=== PATIENT | female | born 1965 | race Caucasian/White ===

== ENCOUNTER 2020-08-06 12:23 | Outpatient (CLI) | payer BC | END 2020-08-06 12:24 | disposition home or self-care (01) | LOC: CSHULT 12:23 | PROVIDERS: ATTEND Internal Medicine Hematology & Oncology | DX: D37.6 Neoplasm of uncertain behavior of liver, gallbladder and bile ducts (principal); R93.2 Abnormal findings on diagnostic imaging of liver and biliary tract; K80.80 Other cholelithiasis without obstruction | CPT/HCPCS: 93975 ==

== ENCOUNTER 2023-03-29 13:50 | Emergency (ER) | payer MEDICARE ==
[2023-03-29 15:40] LABS: Hematocrit 37.8 % (34.9-44.5); Hemoglobin 12.7 g/dL (12.0-15.5); Mean Corpuscular HGB CONC 33.6 g/dL (32.0-36.0); Mean Corpuscular Hemoglobin 32.5 pg (27.0-33.0); Mean Corpuscular Volume 96.7 fl (81.6-98.3); RBC Distribution Width 13.2 % (11.5-14.5); Red Blood Cell (RBC) Count 3.91 10x6/uL (3.90-5.03); White Blood Cell (WBC) Count 5.3 10x3/uL (3.5-10.5)
[2023-03-29 15:41] LABS: #Eosinphils 0.2 10x3/uL (0.0-0.5); #Monocytes 0.5 10x3/uL (0.0-1.1); #Neutrophils 3.8 10x3/uL (1.5-8.4); %Basophils 0.6 % (0.0-2.0); %Eosinophils 2.8 % (0.0-6.0); %Lymphocytes 16.5 % (18.0-47.0); %Monocytes 9.6 % (0.0-10.0); %Neutrophils 70.1 % (40.0-75.0)
[2023-03-29 15:49] LABS: ALT (SGPT) 40 U/L (8-55); AST (SGOT) 47 U/L (5-34); Albumin 3.5 g/dL (3.5-5.0); Alkaline Phosphatase 174 U/L (40-110); Anion Gap 16 mmol/L (10-20); BUN (Urea Nitrogen) 17 mg/dL (9.8-20.1); Bilirubin, Total 1.1 mg/dL (0.2-1.2); Calc. Creatinine Clearance 0 mL/min (70-130); Calcium 9.2 mg/dL (7.8-10.44); Carbon Dioxide 21 mmol/L (22-29); Chloride 107 mmol/L (98-107); Estimated GFR 96; Glucose 115 mg/dL (70-105); Potassium 4.5 mmol/L (3.5-5.1); Protein, Total 6.5 g/dL (6.0-8.3); Sodium 139 mmol/L (136-145)
[2023-03-29 15:55] LABS: Platelet Count 121 10x3/uL (150-450)
== END 2023-03-29 15:52 | disposition home or self-care (01) ==
LOC: CSHERS 13:50
DX: I10 Essential (primary) hypertension (principal)
CPT/HCPCS: 36415; 80053; 85025; 93005; 93010; 99283

== ENCOUNTER 2023-05-05 10:29 | Outpatient (CLI) | payer MEDICARE ==
[~2023-05-05 10:29] MED LIST: Iopamidol 300 61% 100 ML VIAL FS ONE
== END 2023-05-05 10:30 | disposition home or self-care (01) ==
LOC: CSHCT 10:29
PROVIDERS: ATTEND Internal Medicine Hematology & Oncology
DX: C50.919 Malignant neoplasm of unspecified site of unspecified female breast (principal); R93.89 Abnormal findings on diagnostic imaging of other specified body structures; R59.1 Generalized enlarged lymph nodes
CPT/HCPCS: 70491